=== PATIENT | male | born 1950 | race Caucasian/White ===

== ENCOUNTER → 2017-01-25 | Outpatient (CLI) | payer MEDICARE, OTHER ==
[2017-01-25 18:44] LABS: Non-African American GFR(MDRD) >60 (>60 ml/min/1.73 sqM)
--- NOTE | 2017-01-25 22:04 | MR ---
MRI CERVICAL SPINE: CLINICAL HISTORY: Bilateral arm weakness and hand numbness per order. Weakness into both arms and fin gers for 15 months per patient. TECHNIQUE: Multiplanar, multisequence imaging of the cervical spine is performed without and with IV contrast, 7.5 cc of gadolinium was given intravenously. COMPARISON: None. FINDINGS: Sagittal images of the cervical spine show the craniocervical junction to appear within nor mal limits. The cervical and upper thoracic spinal cord is normal in course, caliber, and signal. V ertebral alignment is anatomic. The vertebral body and intravertebral disk heights are normal. Poste rior disc herniation C5-C6 level is seen on sagittal images. Mild multilevel anterior spurring mid to lower cervical spine is present. The bone marrow signal intensity is within normal limits. No suspic ious postcontrast enhancement is seen. Axial images show the C2-C3 and C3-C4 levels to appear within normal limits. Axial images at C4-C5 level showed broad based posterior disc protrusion mildly facing anterior theca l sac and causing asymmetric mild right-sided neuroforaminal narrowing due to marginal spurring. Left -sided neural foramen is patent. Axial images at C5-C6 level shows broad-based posterior disc protrusion effacing anterior thecal sac and causing moderate to severe bilateral neural foraminal narrowing with some marginal spurring prese nt bilaterally. Axial images at C6-C7 level showed broad based posterior disc protrusion with marginal spurring effac ing anterior thecal sac and causing moderate right-sided neural foraminal narrowing. Left-sided neura l foramina shows mild narrowing. Axial images at C7-T1 level are within normal limits. No suspicious enhancement is noted. IMPRESSION: Multilevel degenerative changes in the cervical spine most prominent at C5-C6 level as de tailed above.
--- NOTE | 2017-01-25 23:54 | MR ---
EXAMINATION TYPE: MR brachial plexus BILAT wo/w DATE OF EXAM: 01/25/2017 COMPARISON: NONE HISTORY: Bilat arm weakness, Hand numbness CONTRAST: Standard multiplanar, multisequence MRI departmental protocol utilizing 7.5 mL intravenous Gadavist g adolinium contrast. FINDINGS: The cervical vertebra have fairly normal alignment. There is degenerative disc space narrow ing at C5-6 and C6-7. There is posterior spurring of the endplates with some encroachment on the spin al canal and also the left side C5-6 neural foramen. Cervical spinal cord has fairly normal signal pa ttern. There is no evidence of a syrinx. I see no paraspinal mass. There is no pathologic enhancement . I see no focal bone destruction. There is some narrowing of the neural foramina at multiple levels bilaterally due to uncovertebral spur formation. IMPRESSION: There is multilevel spondylosis with some neural foraminal encroachment due to uncovertebral spurring and facet arthropathy. No evidence of brachial plexus mass.
== END | disposition home or self-care (01) ==
LOC: RADMRIMAIN 18:08
PROVIDERS: ATTEND Psychiatry & Neurology Neurology
DX: M47.812 Spondylosis without myelopathy or radiculopathy, cervical region (principal); M46.96 Unspecified inflammatory spondylopathy, lumbar region
CPT/HCPCS: 82565; 72156; 71552; A9581